=== PATIENT | female | born 1960 | race Caucasian/White ===

== ENCOUNTER 2023-04-28 13:44 | Outpatient (CLI) | payer OTHER, SELFPAY ==
--- NOTE | 2023-04-28 13:49 | ECHOCS_ITS ---
Reason For Study: CAD/ASHD Procedure This was a 2D Doppler, Color Flow transthoracic echocardiogram. The study was technically difficult. Contrast injection was performed. Exam performed in department. Left Ventricle Normal LV size. Left ventricular systolic function is normal. The estimated ejection fraction is 65 %. Stage 1 diastolic dysfunction. No regional wall motion abnormalities noted. Right Ventricle Normal RV size. Normal systolic function. Atria Normal left atrium. Normal right atrium. Mitral Valve Normal mitral valve. Tricuspid Valve Normal tricuspid valve. Aortic Valve Normal aortic valve. Trisinus/trileaflet aortic valve. Pulmonic Valve Normal pulmonic valve. Great Vessels Normal aortic root. The pulmonary artery is normal size. Normal inferior vena cava. Pericardium/Pleural No pericardial effusion. Medication 22 gauge I.V. with prn adaptor inserted into right arm. Diluted definity 1.5ml given slow IV push to enhance endocardial definition. MMode/2D Measurements & Calculations LVIDd: 4.6 cm IVSd: 0.68 cm Ao root diam: 2.8 cm LVIDs: 3.1 cm LVPWd: 0.71 cm LA dimension: 3.4 cm RVDd: 3.1 cm FS: 32.4 % LAV(MOD-bp): 33.9 ml LVAd ap4: 24.4 cm2 LVAd ap2: 25.7 cm2 LAV(MOD-bp) Indexed: 18.8 ml/m2 LVLd ap4: 7.2 cm LVLd ap2: 7.2 cm LAV(MOD-sp2): 34.2 ml EDV(MOD-sp4): 66.7 ml EDV(MOD-sp2): 74.3 ml LAV(MOD-sp4): 31.8 ml EDV(sp4-el): 69.9 ml EDV(sp2-el): 77.4 ml LVAs ap4: 13.8 cm2 LVAs ap2: 11.8 cm2 LVLs ap4: 6.1 cm LVLs ap2: 5.3 cm ESV(MOD-sp4): 26.0 ml ESV(MOD-sp2): 22.1 ml ESV(sp4-el): 26.1 ml ESV(sp2-el): 22.7 ml EF(MOD-sp4): 60.9 % EF(MOD-sp2): 70.2 % EF(sp4-el): 62.6 % SV(MOD-sp4): 40.7 ml SV(MOD-sp2): 52.2 ml SV(sp4-el): 43.8 ml LA A4 area: 14.1 cm2 RA A4 area: 13.1 cm2 Time Measurements MV dec time: 0.24 sec Doppler Measurements & Calculations MV E max tae: 54.2 cm/sec Lat Peak E' Tae: 8.7 cm/sec Med Peak E' Tae: 8.9 cm/sec MV A max tae: 72.4 cm/sec E/E' lat: 6.2 E/E' med: 6.1 MV E/A: 0.75 MV V2 max: 87.4 cm/sec MV P1/2t max tae: 75.9 cm/sec Ao V2 max: 128.6 cm/sec MV max P.1 mmHg MV P1/2t: 77.0 msec Ao max P.6 mmHg MV V2 mean: 49.9 cm/sec Ao V2 mean: 86.3 cm/sec MV mean P.2 mmHg MV dec slope: 288.7 cm/sec2 Ao mean P.4 mmHg MV V2 VTI: 19.4 cm MVA(P1/2t): 2.9 cm2 Ao V2 VTI: 26.0 cm AV (velocity ratio): 0.72 LV V1 max: 93.1 cm/sec PA V2 max: 75.7 cm/sec LV V1 max P.5 mmHg PA V2 mean: 54.0 cm/sec LV V1 mean P.1 mmHg LV V1 mean: 68.8 cm/sec LV V1 VTI: 18.6 cm ECHO/Echo Complete W/ Contrast Interpretation Summary Normal LV size. Left ventricular systolic function is normal. The estimated ejection fraction is 65 %. Stage 1 diastolic dysfunction. Contrast injection was performed. Ordering Physician: KENDALL ARGUETA Referring Physician: KENDALL ARGUETA Performed By: Robert Gregg RCS
== END 2023-04-28 23:59 | disposition home or self-care (01) ==
DX: I25.10 Atherosclerotic heart disease of native coronary artery without angina pectoris (principal)
CPT/HCPCS: 93306; Q9957; A4216; C8929

== ENCOUNTER → 2024-01-04 | Outpatient (CLI) | payer OTHER, SELFPAY ==
--- NOTE | 2024-01-04 15:51 | BD_ITS ---
STUDY: DUAL ENERGY X-RAY ABSORPTIOMETRY / DXA REASON FOR EXAM: Female, 63 years old. V76.12ScreeningBONE DENSITY REASON FOR EXAM TECHNIQUE: Bone Mineral Density (BMD) measurements of lumbar spine and bilateral hips were obtained. COMPARISON: None. FINDINGS: Lumbar Spine (L1-L4): g/cm2 (1.057) / T-score (0.1) / Z-score (1.7) Findings are suggestive of normal bone density with a low fracture risk. Left Femur Total: g/cm2 (0.886) / T-score (-0.5) / Z-score (0.6) Left Femoral Neck: g/cm2 (0.718) / T-score (-1.2) / Z-score (0.2) Right Femur Total: g/cm2 (0.840) / T-score (-0.8) / Z-score (0.2) Right Femoral Neck: g/cm2 (0.744) / T-score (-0.9) / Z-score (0.4) BD/Dexa Bone Density Study IMPRESSION: The patient is considered osteopenic as outlined below according to World Timothy Organization (WHO) criteria with a moderate fracture risk. Reference Information: The T-score is the number of standard deviations above or below the standard which is normal for young adults at their peak bone mineral density. The World Health Organization (WHO) interprets the T-scores as follows: Above -1 Normal bone density Between -1 and -2.5 Osteopenia Equal to / or below -2.5 Osteoporosis As a practical clinical guideline, osteopenia may be graded as follows: Mild -1 through -1.5 Moderate -1.6 through -2.0 Severe -2.1 through -2.4 The Z-score is the number of standard deviations above or below age-matched controls. A Z-score of less than -1.5 would be considered abnormal. References: 1. NIH Osteoporosis and Related Bone Diseases www osteo.org 2. International Society for Clinical Densitometry www iscd.org 3. National Osteoporosis Foundation www nof.org Electronically Signed: Sami Angelo MD at 14:33 EDT ,
== END | disposition home or self-care (01) ==
LOC: OPBD 15:44
DX: Z13.820 Encounter for screening for osteoporosis (principal)
CPT/HCPCS: 77080